=== PATIENT | female | born 1985 | race Caucasian/White ===

== ENCOUNTER 2016-03-31 17:02 | Emergency (ER) | payer OTHER ==
[~2016-03-31] VITALS: Ht 165.1 cm; Wt 118.4 kg
[~2016-03-31 17:02] MED LIST: ALDACTONE PO; ALLERGY MED PO; AMBIEN10 MG PO; AMBIEN5 MG PO; BIRTH CONTROL; BUSPAR10 MG PO; CELEXA10 MG PO; DAYQUIL PO; DILAUDID2 MG PO; FLEXERIL10 MG PO; GLUCOPHAGE500 MG PO; HYDROCODON-ACE1 EAC7 PO; LEVOTHYROXINE75 MCG PO; LIPITOR PO; LYRICA100 MG PO; LYRICA150 MG PO; LYRICA75 MG PO; METFORMIN HCL500 MG PO; MINIPRESS1 MG PO; MULTI-VITAMIN1 EAC4 PO; NAPROSYN500 MG PO; NAPROXEN500 MG PO; NEOSPORIN OINTM30 GM PO; NEURONTIN300 MG PO; NYQUIL PO; Neosporin Ointment TP; PAXIL20 MG PO; PHENTERMINE HCL15 MG PO; PREDNISONE20 MG PO; PROZAC40 MG PO; RISPERDAL0.5 MG PO; RISPERDAL1 MG PO; RISPERIDONE0.5 MG PO; SIMVASTATIN40 MG PO; SYNTHROID PO; SYNTHROID50 MCG PO; SYNTHROID75 MCG PO; TOPAMAX200 MG PO; TOPAMAX50 MG PO; VALIUM5 MG PO; VICODIN,LORT1 TABLET PO; WELLBUTRIN SR150 MG PO; XANAX1 MG PO; ZOCOR40 MG PO; ZOFRAN ODT4 MG PO; ZOFRAN4 MG PO; ZOLPIDEM TARTRAT5 MG PO; ZYRTEC10 M3 PO; [UNRECOGNIZED DRUG - REMARK]; [UNRECOGNIZED DRUG - REMARK] IH; [UNRECOGNIZED DRUG - REMARK] PO; [UNRECOGNIZED DRUG - REMARK] PO
[2016-03-31 17:50] LABS: HEMATOCRIT 45.6 % (36.0-46.0); MCH 30.6 PG (29.0-34.0); MCHC 33.3 G/DL (30.0-36.0); MCV 91.9 FL (83-99); MEAN PLAT.VOLUME 10.1 uM^3 (9.5-12.4); PLATELET COUNT 207 K/uL (156-360); RBC DIS.WIDTH-CV 13.2 % (11.8-14.6); RBC DIS.WIDTH-SD 43.6 % (39-53); RED BLOOD COUNT 4.96 M/uL (3.80-5.20); WHITE BLOOD COUNT 12.9 K/uL (4.1-10.2)
[2016-03-31 18:03] LABS: CHLORIDE 107 mEq/L (99-109); SODIUM 139 mEq/L (136-147)
[2016-03-31 18:05] LABS: GLUCOSE 88 mg/dL (70-99)
[2016-03-31 18:06] LABS: ANION GAP 8 MEQ/L (2-14)
[2016-03-31 18:09] LABS: GFR ESTIMATE (CALCULATED) > 59 mL/min/
[2016-03-31 18:10] LABS: UREA NITROGEN (BUN) 10 mg/dL (9-23)
[2016-03-31 18:19] LABS: QUANTITATIVE HCG < 4.0 MIU/ML
[2016-03-31 19:13] LABS: ADD MIUA? YES; BILIRUBIN NEGATIVE; BLOOD LARGE; COLOR DK YELLOW ((YELLOW)); GLUCOSE (STRIP) NEGATIVE; KETONES NEGATIVE; LEUKOCYTES MODERATE; NITRITE NEGATIVE; PROTEIN (STRIP) 100; SPECIFIC GRAVITY 1.022 (1.000-1.030); UROBILINOGEN 0.2 MG/DL (0.2-1.0)
[2016-03-31] MEDS ORDERED: MORPHINE SULFAT15 M1 PO (19:30)
[2016-03-31] MEDS ORDERED: KADIAN20 MG PO (19:32)
[2016-03-31] MEDS ORDERED: CYMBALTA60 MG PO (19:32)
[2016-03-31 19:38] LABS: CASTS NONE SEEN /LPF; EPITHELIAL CELLS 3+ /HPF; MUCUS TRACE /LPF
[2016-03-31 19:39] LABS: BACTERIA 2+ /HPF; RED BLOOD CELLS TNTC /HPF (0-5); UCUL ADDED? YES; WHITE BLOOD CELLS TNTC /HPF (0-5)
[2016-03-31] MEDS ORDERED: BACTRIM,SEPT1 TABLET PO (20:16)
[2016-03-31] MEDS ORDERED: PYRIDIUM200 MG PO (20:16)
[2016-03-31 20:31] VITALS: BP 118/76
== END 2016-03-31 20:32 | disposition home or self-care (01) ==
LOC: EME 17:02 → RME 17:02
DX: N39.0 Urinary tract infection, site not specified (principal); R31.9 Hematuria, unspecified; F17.200 Nicotine dependence, unspecified, uncomplicated; E78.5 Hyperlipidemia, unspecified; I10 Essential (primary) hypertension; Z87.442 Personal history of urinary calculi; K21.9 Gastro-esophageal reflux disease without esophagitis
CPT/HCPCS: 74000; 80048; 81003; 84702; 85027; 87086; 99281; 99284

== ENCOUNTER → 2016-04-10 | Outpatient (CLI) | payer OTHER ==
[~2016-04-10] MED LIST changes: +BACTRIM,SEPT1 TABLET PO; +CYMBALTA60 MG PO; +KADIAN20 MG PO; +MORPHINE SULFAT15 M1 PO; +PYRIDIUM200 MG PO
== END | disposition home or self-care (01) ==
LOC: RAD 12:13
DX: Z01.818 Encounter for other preprocedural examination (principal)
CPT/HCPCS: 71020

== ENCOUNTER 2016-10-09 23:43 | Emergency (ER) | payer OTHER ==
[~2016-10-09] VITALS: Ht 165.1 cm; Wt 119.1 kg
[2016-10-10] MEDS ORDERED: AUGMENTIN500 MG PO (00:42)
[2016-10-10 00:53] VITALS: BP 131/74
== END 2016-10-10 00:53 | disposition home or self-care (01) ==
LOC: EME 23:43 → EXP 23:43
PROC: 3E0234Z Introduction of Serum, Toxoid and Vaccine into Muscle, Percutaneous Approach (ICD-10-PCS; principal; 2016-10-09)
DX: S60.372A Other superficial bite of left thumb, initial encounter (principal); W53.81XA Bitten by other rodent, initial encounter; Z23 Encounter for immunization; Z72.0 Tobacco use
CPT/HCPCS: 99281; 99284

== ENCOUNTER → 2017-09-21 | Outpatient (CLI) | payer OTHER ==
[~2017-09-21] MED LIST changes: +AUGMENTIN500 MG PO
== END | disposition home or self-care (01) ==
LOC: RAD 10:50
DX: M25.562 Pain in left knee (principal); M25.561 Pain in right knee
CPT/HCPCS: 73564